=== PATIENT | female | born 1990 | race Caucasian/White ===

== ENCOUNTER 2018-09-06 22:16 | Emergency (ER) | payer BC ==
[~2018-09-06] VITALS: Ht 165.1 cm; Wt 59.0 kg
--- NOTE | 2018-09-06 22:40 | NUR ---
ED Nurse Note: Patient walked in to ER due to laceration on top of her nose. Per patient she was watching move on her computer, and it fell on her nose. AAO x4, VSS at this time. Patient presented with small laceratiopn on top of her nose.
[2018-09-06 22:45] VITALS: BP 107/77
--- NOTE | 2018-09-06 23:17 | Emergency Room Report ---
History of Present Illness General Chief Complaint: Laceration Source: Patient Present Illness HPI Is a 28-year-old female with no past medical history. She presents with a laceration to the bridge of her nose. She was holding her laptop and it fell on her face. Sustained a laceration to the bridge of the nose. No other injury. Occurred couple hours ago. Minimal pain. No bleeding. Allergies: Coded Allergies: No Known Allergies (Unverified , 09/06/18) Patient History Past Medical History: none, see triage record, old chart reviewed Past Surgical History: none Pertinent Family History: none Social History: Denies: smoking Last Menstrual Period: 08/30/18 Now: No Immunizations: UTD Reviewed Nursing Documentation: PMH: Agreed; PSxH: Agreed Nursing Documentation-PMH Past Medical History: No Stated History Review of Systems Eye: Denies: eye pain, blurred vision ENT: Denies: ear pain, nose congestion, throat swelling Respiratory: Denies: cough, shortness of breath Cardiovascular: Denies: chest pain, palpitations Gastrointestinal: Denies: abdominal pain, diarrhea, nausea, vomiting Musculoskeletal: Denies: back pain, joint pain Skin: Denies: rash Neurological: Denies: headache, numbness Endocrine: Denies: increased thirst, increased urine Hematologic/Lymphatic: Denies: easy bruising All Other Systems: negative except mentioned in HPI Physical Exam Vital Signs Date Time Temp Pulse Resp B/P (MAP) Pulse Ox O2 Delivery O2 Flow Rate FiO2 09/06/18 22:22 97.9 66 20 107/77 (87) 98 Room Air Normal Sp02 EP Interpretation: reviewed, normal General Appearance: well appearing, no apparent distress, alert Head: normocephalic, atraumatic Eyes: bilateral eye PERRL, bilateral eye EOMI ENT: hearing grossly normal, normal pharynx, other - 1 cm superficial laceration to the bridge of nose. Well approximated Neck: full range of motion, supple, no meningismus Respiratory: chest non-tender, lungs clear, normal breath sounds Cardiovascular #1: regular rate, rhythm, no murmur Gastrointestinal: normal bowel sounds, non tender, no mass, no organomegaly, no bruit, non-distended Musculoskeletal: back normal, gait/station normal, normal range of motion Psychiatric: mood/affect normal Procedures Laceration/Wound Repair Laceration/Wound Repair : Consent: Verbal Wound Location: face Wound's Depth, Shape: superficial Wound Length (cm): 1 Wound Repaired With: Dermabond Patient Tolerated: Well Complications: None Medical Decision Making Diagnostic Impression: Primary Impression: Laceration ER Course She was laceration of the bridge of the nose. No deformity to indicate fracture. Low risk for infection. Will discharge home. Last Vital Signs Date Time Temp Pulse Resp B/P (MAP) Pulse Ox O2 Delivery O2 Flow Rate FiO2 09/06/18 22:45 97.9 20 107/77 98 Room Air 09/06/18 22:22 66 Status: improved Disposition: HOME, SELF-CARE Condition: Stable Referrals: NOT CHOSEN IPA/MD,REFERRING (PCP) Patient Instructions: Nonsutured Laceration Care Additional Instructions: Do not apply any ointment over the wound. Follow-up with your doctor in 7 days. Return if symptoms worsen. William Richardson MD Sep 06, 2018 23:17
[2018-09-06 23:20] VITALS: BP 107/77
--- NOTE | 2018-09-06 23:21 | NUR ---
ED Nurse Note: Pt cleared by health care Provider for discharge. DC instructions/prescription was given and explained to pt and verbalized understanding of teachings. All medical deviecs such as ID band removed. Pt is AAO x4, ambulatory and left with all personal belongings.
== END 2018-09-06 23:32 | disposition home or self-care (01) ==
LOC: EMR 23:05
DX: S01.21XA Laceration without foreign body of nose, initial encounter (principal); W20.8XXA Other cause of strike by thrown, projected or falling object, initial encounter; Y92.9 Unspecified place or not applicable
CPT/HCPCS: 99282